=== PATIENT | male | born 1935 | race Caucasian/White ===

== ENCOUNTER → 2018-08-21 12:55 | Outpatient (CLI) | payer MEDICARE, OTHER, SELFPAY ==
--- NOTE | 2018-08-21 | DI.US.S_ITS ---
PROCEDURE: US SOFT TISSUE HEAD AND NECK INDICATIONS: RIGHT UPPER NECK/JAW SOFT TISSUE MASS TECHNIQUE: Real-time scanning was performed of the neck region of interest, with image documentation. COMPARISON: None. FINDINGS: At the area of clinical concern, there is a cystic mass seen involving the posterior right cheek. This measures 2.9 x 2.3 x 2.6 cm and demonstrates no abnormal vascularity on color Doppler imaging. IMPRESSION: There is a 2.9 cm cystic lesion seen associated with the posterior right cheek. 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 For further evaluation, please consider a dedicated neck CT with IV contrast. Dictated by: Luke Burns M.D. on 08/21/2018 at 13:09 Approved by: Luke Burns M.D. on 08/21/2018 at 13:11
== END ==
PROVIDERS: Visit Provider Internal Medicine
DX: R22.1 Localized swelling, mass and lump, neck (principal); R22.0 Localized swelling, mass and lump, head
CPT/HCPCS: 76536